=== PATIENT | female | born 1955 | race Caucasian/White ===

== ENCOUNTER → 2017-05-10 | Outpatient (CLI) | payer OTHER | LOC: FIMAGING 14:01 | PROVIDERS: ATTEND Internal Medicine | DX: Z12.31 Encounter for screening mammogram for malignant neoplasm of breast (principal) | CPT/HCPCS: G0202 ==

== ENCOUNTER 2017-06-25 18:52 | Emergency (ER) | payer OTHER ==
[2017-06-25] MEDS ORDERED: ONDANSETRON 4 MG/2 ML VIAL ONE (19:14)
[2017-06-25] MEDS ORDERED: NS 1,000 ML IV ONE ×2 (19:15→20:29)
[2017-06-25] MEDS ORDERED: ONDANSETRON 4 MG/2 ML VIAL IVP ONE (19:15)
[2017-06-25] MEDS ORDERED: METOCLOPRAMIDE 10 MG/2 ML VIAL IVP ONE (19:21)
--- NOTE | 2017-06-25 19:24 | EDPHY ---
HPI/HX/ROS/PE/MDM Narrative: CHIEF COMPLAINT: Headache HPI: The patient is a 61 y/o female arriving with her complaining of headache onset , two days ago. She had elective abdominal surgery ( tummy tuck) on and had to be put on oxygen for shallow breathing in the recovery room. It took her several hours to come out of anesthesia. Upon waking up she began experiencing a headache that has not improved since. She describes the headache as in the frontal area of her head and "splitting". The prescribed analgesics (oxycodone) have not improved her headache. She has associated nausea and vomiting that interferes with her ability to eat. She denies any abdominal pain, visual changes, or other associated symptoms. She reports experiencing similar symptoms following a different surgery. REVIEW OF SYSTEMS: Aside from elements discussed in the HPI, a comprehensive 10-point review of systems was reviewed and is negative. PMH: Hysterectomy, tummy tuck SOCIAL HISTORY: at bedside, PHYSICAL EXAM: General:Patient is alert, in no acute distress. ENT:Eyes are normal to inspection. ENT inspection normal. Neck: Normal inspection. Full range of motion. Respiratory:No respiratory distress. Breath sounds normal bilaterally. Cardiovascular: Regular rate and rhythm. Strong peripheral pulses. Normal cap refill. Abdomen:Bilateral KAREN drains. The abdomen is nontender to palpation. There are no peritoneal signs. There are normal bowel sounds. Back: Normal to inspection. No tenderness to palpation. Skin: Horizontal incision on her abdomen that appears to be healing well. Normal color. No rash. Warm and dry. Extremities: Normal appearance. Full range of motion. Neuro: Oriented x3. Normal motor function. Normal sensory function. ED Course: Study: X-ray of the abdomen Indication: Nausea and vomiting post-surgery Results: X-ray of the abdomen was obtained. The results of the study are: constipation and pleural effusions The study was read by the radiologist, Dr. Gagnon. I viewed the images myself on the PACS system. I assessed this patient and advised a CT which she refused and requested a shot of morphine which helped her in the past. I agreed to this plan and emphasized that a CT would be available if she changes her mind. I reassessed this patient and informed her of the results of her workup. I advised she can return home and she agrees to this plan. Follow-up instructions and return precautions given. MDM: This patient presents with complaint of headache since awakening from anesthesia after abdominoplasty a few days ago. This is similar to another headache she had after an operation. She declines imaging of her brain, and is aware I cannot rule out bleed, tumor, CVA or thrombus without testing. Incidentally, her RA O2 sat was noted to be quite low. The patient was discharged from the hospital with home O2 but per patient has been noncompliant with this as well as with IS use. We started patient on O2 here and gave reglan IV, the combination of which seems to have improved her symptoms quite a bit. Her abd xr does not show obstruction, but she does appear fairly constipated. It sounds like patient has not really been complaint with stool softeners. After much discussion, patient would like to go home. I strongly encouraged her to ambulate as much as possible and to cut down on narcotic use. We discussed strict return precautions. - Data Points Imaging Results: Imaging Impressions Abdomen X-Ray 06/25/17 19:41 Impression: 1. Moderate stool in the proximal colon without evidence of obstruction. 2. Small bilateral pleural effusions with probable associated atelectasis. Chest X-Ray 06/25/17 19:41 Impression: Small bilateral pleural effusions with streaky basilar opacities suggesting atelectasis. Imaging: Discussed imaging studies w/ call center manager Radiologist, I viewed and interpreted images myself Medications Given: Discontinued Medications Diphenhydramine HCl (Benadryl Injection) 25 mg IVP EDNOW ONE Stop: 06/25/17 19:22 Last Admin: 06/25/17 19:32 Dose: 25 mg Sodium Chloride (Ns) 1,000 mls @ 0 mls/hr IV ONCE ONE; Wide Open PRN Reason: Protocol Stop: 06/25/17 19:16 Last Admin: 06/25/17 19:19 Dose: 1,000 mls Sodium Chloride (Ns) 1,000 mls @ 0 mls/hr IV EDNOW ONE; Wide Open PRN Reason: Protocol Stop: 06/25/17 20:30 Last Admin: 06/25/17 20:32 Dose: 1,000 mls Metoclopramide HCl (Reglan Injection) 10 mg IVP EDNOW ONE Stop: 06/25/17 19:22 Last Admin: 06/25/17 19:32 Dose: 10 mg Morphine Sulfate (Morphine) 4 mg IVP EDNOW ONE Stop: 06/25/17 19:23 Last Admin: 06/25/17 20:21 Dose: Not Given Ondansetron HCl (Zofran) 4 mg IVP EDNOW ONE Stop: 06/25/17 19:16 Last Admin: 06/25/17 19:19 Dose: 4 mg General Time Seen by Provider: 06/25/17 19:09 Initial Vital Signs: Initial Vital Signs Temperature (C) 36.9 C 06/25/17 18:53 Heart Rate 85 06/25/17 18:53 Respiratory Rate 20 06/25/17 18:53 Blood Pressure 158/108 H 06/25/17 18:53 O2 Sat (%) 89 L 06/25/17 18:53 O2 Delivery Mode Room Air O2 (L/minute) 15 Allergies/Adverse Reactions: No Known Allergies Allergy (Verified 06/25/17 18:52) Home Medications: Medication Instructions Recorded Acetaminophen [Tylenol 325mg (*)] 325 mg PO 06/25/17 Cephalexin [Keflex (*)] 250 mg PO 06/25/17 Cyclobenzaprine [Flexeril 10 MG 10 mg PO 06/25/17 (*)] Docusate Sodium [Colace 100 MG (*)] 100 mg PO BID 06/25/17 H R T 06/25/17 Hydrocodone/APAP 5/325 [[place] 1 each PO 06/25/17 5/325 (*)] Ondansetron Odt [Zofran Odt 4 mg 4 mg PO Q4 06/25/17 (*)] oxyCODONE HCL [Oxycodone HCl] 5 mg PO 06/25/17 Departure - Departure Disposition: Home, Routine, Self-Care Clinical Impression: Constipation Qualifiers: Constipation type: other constipation type Qualified Code(s): K59.09 - Other constipation Headache Qualifiers: Headache type: other headache syndrome Qualified Code(s): G44.89 - Other headache syndrome Condition: Good Instructions: Constipation (ED), Acute Headache (ED) Additional Instructions: 1. Continue taking prescribed medicines as directed as needed. 2. Follow-up with your primary care provider for unimproved symptoms in 2-3 days. 3. Return to the ED for worsening of condition. Referrals: Antoinette Rivera MD [Primary Care Provider] - As per Instructions Report Scribed for: Kar Bustamante Report Scribed by: Loyda Ramirez Date of Report: 06/25/17 Time of Report: 19:24 Physician Review and Approval Statement: Portions of this note were transcribed by an ED scribe. I personally performed the history, physical exam, and medical decision making; and confirm the accuracy of the information in the transcribed note.
[2017-06-25] MEDS ORDERED: MAGNESIUM CITRATE 300 ML BOTTLE PO ONE (21:43)
[2017-06-25 21:53] VITALS: BP 152/99; PULSE 84; RESP 16; TEMP 97.9; O2SAT 93
== END 2017-06-25 21:49 | disposition home or self-care (01) ==
PROC: 3E0337Z Introduction of Electrolytic and Water Balance Substance into Peripheral Vein, Percutaneous Approach (ICD-10-PCS; principal; 2017-06-25)
DX: G44.89 Other headache syndrome (principal); K59.00 Constipation, unspecified; E86.9 Volume depletion, unspecified
CPT/HCPCS: 96374; J1200; J2405; J2765

== ENCOUNTER → 2018-06-14 | Outpatient (CLI) | payer OTHER | LOC: FIMAGING 12:54 | PROVIDERS: ATTEND Internal Medicine | DX: Z12.31 Encounter for screening mammogram for malignant neoplasm of breast (principal); Z80.3 Family history of malignant neoplasm of breast ==